=== PATIENT | male | born 1985 | race Caucasian/White ===

== ENCOUNTER 2017-05-15 13:45 | Emergency (ER) | payer OTHER ==
[~2017-05-15] VITALS: Ht 182.9 cm; Wt 94.0 kg
[2017-05-15 13:47] VITALS: BP 134/76; PULSE 108; RESP 16; TEMP 99.5; O2SAT 96
[2017-05-15] MEDS ORDERED: SODIUM CHLOR 0.9% 1000 ML INJ 1,000 ML IV SCH (14:11)
[2017-05-15] MEDS ORDERED: RESP: ALBUTEROL 2.5 MG/3 ML NEB (SCH) INH ONE (14:15)
[2017-05-15] MEDS ORDERED: methylPREDNISolone SOD SUCC 125 MG/2 ML VIAL IV PUSH ONE (14:15)
[2017-05-15] MEDS ORDERED: ONDANSETRON HCL 4 MG/2 ML VIAL IVP ONE (14:15)
[2017-05-15] MEDS ORDERED: KETOROLAC TROMETHAMINE 30 MG/ML (IVP) VIAL IVP ONE (14:15)
[2017-05-15] MEDS ORDERED: SODIUM CHLORIDE 0.9% FLUSH 10 ML FLUSH IV FLUSH PRN (14:15)
--- NOTE | 2017-05-15 14:25 | PD ---
HPI Chief Complaint: Cold / Flu Symptoms Time Seen by Provider: 14:08 Travel History International Travel<30 days: No Contact w/Intl Traveler<30days: No Traveled to known affect area: No History of Present Illness HPI 42-year-old male presents to emergency Department with complaint of fever, nasal congestion, cough, body aches, vomiting since Saturday. MAXIMUM TEMPERATURE of 103.0. Reports chest tightness. Denies chest pain, shortness of breath, wheezing. Denies ear pain. Reports throat pain. Denies abdominal pain. Reports decreased appetite and fluid intake. Has been drinking water and Gatorade. Denies diarrhea or change in stool. Symptoms are moderate in severity. Son is sick with similar symptoms and is currently being seen in the ER also. No known relieving or aggravating factors. No known allergies. Denies significant past medical history. Has no other medical complaints. No other modifying factors or associated signs and symptoms. PFSH Past Medical History Anxiety: Yes Tetanus Vaccination: Unknown Influenza Vaccination: No Past Surgical History Surgical History: No Previous Surgery Social History Alcohol Use: No Tobacco Use: No Substance Use: No Allergies-Medications (Allergen,Severity, Reaction): Coded Allergies: No Known Allergies (Unverified , 05/15/17) Reported Meds & Prescriptions Reported Meds & Active Scripts Active Ibuprofen 800 Mg Tab 800 Mg PO Q6HR PRN Zofran Odt (Ondansetron Odt) 4 Mg Tab 4 Mg SL Q8HR PRN Deltasone (Prednisone) 20 Mg Tab 20 Mg PO BID 5 Days Ventolin Hfa 18 GM Inh (Albuterol Sulfate) 90 Mcg/Act Aer 2 Puff INH Q4-6H PRN Review of Systems Except as stated in HPI: all other systems reviewed are Neg Physical Exam Narrative GENERAL: Well-nourished, well-developed male patient, in no acute distress; grade fever 99.5; appears like he does not feel well; nontoxic appearing SKIN: Pale. Warm and dry. HEAD: Atraumatic. Normocephalic. EYES: Pupils equal and round. No scleral icterus. No injection or drainage. ENT: Mucosa pink and moist. No erythema or exudates. No uvular edema. No uvular , palatal, or tonsillar deviation. Airway patent. Nares without nasal blood, purulent drainage or septal hematoma. EARS: Bilateral pinnae and external canals appear within normal limits. Bilateral tympanic membranes without erythema, dullness or perforation. NECK: Trachea midline. No lymphadenopathy. CARDIOVASCULAR: Regular rate and rhythm. No murmur appreciated. RESPIRATORY: No accessory muscle use. Lungs with Wheezing throughout to auscultation. Breath sounds equal bilaterally. No retractions or tachypnea. No Audible wheezing noted. GASTROINTESTINAL: Abdomen soft, non-tender, nondistended. Hepatic and splenic margins not palpable. Bowel sounds are active 4 quadrants. MUSCULOSKELETAL: No obvious deformities. No clubbing. No cyanosis. No edema. NEUROLOGICAL: Awake and alert. Oriented 3. No obvious cranial nerve deficits. Motor grossly within normal limits. Normal speech. Moves all extremities. 5/5 strength to all extremities. PSYCHIATRIC: Appropriate mood and affect; insight and judgment normal. Data Data Last Documented VS Vital Signs Date Time Temp Pulse Resp B/P (MAP) Pulse Ox O2 Delivery O2 Flow Rate FiO2 05/15/17 13:47 99.5 108 16 134/76 (95) 96 Orders Orders Influenzae A/B Antigen (05/15/17 14:11) Iv Access Insert/Monitor (05/15/17 14:11) Ondansetron Inj (Zofran Inj) (05/15/17 14:15) Sodium Chlor 0.9% 1000 Ml Inj (Ns 1000 M (05/15/17 14:11) Sodium Chloride 0.9% Flush (Ns Flush) (05/15/17 14:15) Ketorolac Inj (Toradol Inj) (05/15/17 14:15) Group A Rapid Strep Screen (05/15/17 14:11) Chest, Single Ap (05/15/17 14:11) Methylprednisolone So Succ Inj (Solumedr (05/15/17 14:15) Albuterol Neb (Albuterol Neb) (05/15/17 14:15) Basic Metabolic Panel (Bmp) (05/15/17 14:11) Complete Blood Count With Diff (05/15/17 14:11) Strep Culture (Group A) (05/15/17 14:30) Ed Discharge Order (05/15/17 16:45) Labs Laboratory Tests Test 05/15/17 14:30 White Blood Count 7.5 TH/MM3 Red Blood Count 4.99 MIL/MM3 Hemoglobin 13.8 GM/DL Hematocrit 43.8 % Mean Corpuscular Volume 87.7 FL Mean Corpuscular Hemoglobin 27.7 PG Mean Corpuscular Hemoglobin Concent 31.6 % Red Cell Distribution Width 12.9 % Platelet Count 220 TH/MM3 Mean Platelet Volume 8.1 FL Neutrophils (%) (Auto) 79.8 % Lymphocytes (%) (Auto) 11.1 % Monocytes (%) (Auto) 8.4 % Eosinophils (%) (Auto) 0.1 % Basophils (%) (Auto) 0.6 % Neutrophils # (Auto) 6.1 TH/MM3 Lymphocytes # (Auto) 0.8 TH/MM3 Monocytes # (Auto) 0.6 TH/MM3 Eosinophils # (Auto) 0.0 TH/MM3 Basophils # (Auto) 0.0 TH/MM3 CBC Comment DIFF FINAL Differential Comment Blood Urea Nitrogen 17 MG/DL Creatinine 1.20 MG/DL Random Glucose 112 MG/DL Calcium Level 8.8 MG/DL Sodium Level 136 MEQ/L Potassium Level 4.0 MEQ/L Chloride Level 101 MEQ/L Carbon Dioxide Level 25.7 MEQ/L Anion Gap 9 MEQ/L Estimat Glomerular Filtration Rate 69 ML/MIN MDM Medical Decision Making Medical Screen Exam Complete: Yes Emergency Medical Condition: Yes Medical Record Reviewed: Yes Differential Diagnosis Influenza, pneumonia, bronchitis Narrative Course 32-year-old male with cold/flu symptoms. His son is also being seen in the ER for similar symptoms. He has low-grade fever of 99.5 in the ER. He appears like he does not feel well and is pale. Reports MAXIMUM TEMPERATURE 103.0 at home. He has wheezing throughout on auscultation of the lungs. Reports chest tightness. Denies shortness of breath. He is in no acute distress. CBC, BMP, influenza, rapid strep, chest x-ray, IV, normal saline bolus, Zofran, Toradol ordered. 1522: Influenza A+. Rapid strep negative. 1525: Chest x-ray with no acute disease. CBC and BMP unremarkable. 1645: On reexamination Patient reports feeling better. Lungs are clear and equal throughout. I discussed viral illness and symptom management. Patient feels comfortable going home and would like to be discharged home. I feel comfortable with the patient going home. Albuterol inhaler, Deltasone, ibuprofen, Zofran prescribed for home. Diagnosis Primary Impression: Influenza A Additional Impression: Acute bronchitis Qualified Codes: J20.9 - Acute bronchitis, unspecified Referrals: [facility] Primary Care Physician Patient Instructions: Acute Bronchitis (ED), General Instructions, Influenza ( ED) Departure Forms: Tests/Procedures, Work Release Special Instructions: No work until fever free for 24 hours Additional Instructions: Ibuprofen or Tylenol as directed and as needed to reduce fever; may alternate ibuprofen and Tylenol as needed every 3 hours to minimize fever Oral steroids as prescribed Albuterol inhaler as directed and as needed for shortness of breath/wheezing [id number] cold/flu medications as directed and as needed for symptom management Get plenty of sleep/rest Drink plenty of fluids to prevent dehydration; such as Gatorade, Powerade, Pedialyte [place] diet to encourage nutrition such as crackers, fruit, applesauce, toast, soup etc. Use an air humidifier/turn off ceiling fans Follow-up with your primary care provider within 1 day Return immediately to the emergency department with worsening of symptoms Med/Other Pt SpecificInfo: Prescription(s) given Scripts Ibuprofen (Ibuprofen) 800 Mg Tab 800 MG PO Q6HR Y for PAIN, #30 TAB 0 Refills Prov: Tessy King 05/15/17 Ondansetron Odt (Zofran Odt) 4 Mg Tab 4 MG SL Q8HR Y for Nausea/Vomiting, #6 TAB 0 Refills Prov: Tessy King 05/15/17 Prednisone (Deltasone) 20 Mg Tab 20 MG PO BID for 5 Days, #10 TAB 0 Refills Prov: Tessy King 05/15/17 Albuterol 18 GM Inh (Ventolin Hfa 18 GM Inh) 90 Mcg/Act Aer 2 PUFF INH Q4-6H Y for SOB/WHEEZING, #1 INHALER 0 Refills Prov: Tessy King 05/15/17 Disposition: 01 DISCHARGE HOME Condition: Stable Tessy King May 15, 2017 14:25
[2017-05-15 14:38] LABS: AUTOMATED NEUTROPHIL # 6.1 TH/MM3 (1.8-7.7); BASOPHIL % 0.6 % (0.0-2.0); EOSINOPHIL % 0.1 % (0.0-4.0); HEMATOCRIT 43.8 % (39.0-51.0); HEMOGLOBIN 13.8 GM/DL (13.0-17.0); LYMPH % 11.1 % (9.0-44.0); LYMPHOCYTE # 0.8 TH/MM3 (1.0-4.8); MEAN CELL VOLUME 87.7 FL (80.0-100.0); MEAN CORPUSCULAR HEMOGLOBIN 27.7 PG (27.0-34.0); MEAN CORPUSCULAR HGB CONC 31.6 % (32.0-36.0); MEAN PLATELET VOLUME 8.1 FL (7.0-11.0); MONO % 8.4 % (0.0-8.0); MONOCYTE # 0.6 TH/MM3 (0-0.9); NEUT % 79.8 % (16.0-70.0); PLATELET COUNT 220 TH/MM3 (150-450); RED BLOOD COUNT 4.99 MIL/MM3 (4.50-5.90); RED CELL DISTRIBUTION WIDTH 12.9 % (11.6-17.2); WHITE BLOOD COUNT 7.5 TH/MM3 (4.0-11.0)
[2017-05-15 14:49] LABS: BICARBONATE 25.7 MEQ/L (21.0-32.0); CALCIUM 8.8 MG/DL (8.5-10.1)
[2017-05-15 14:52] LABS: CREATININE 1.2 MG/DL (0.60-1.30)
--- NOTE | 2017-05-15 15:23 | RADRPT ---
EXAM DATE/TIME: 05/15/2017 14:46 [place] COMPARISON: No previous studies available for comparison. INDICATIONS : Wheezing. Fever. Vomiting. Cough. MEDICAL HISTORY : None. SURGICAL HISTORY : None. ENCOUNTER: Initial ACUITY: 4 - 6 days PAIN SCORE: 0/10 LOCATION: Bilateral chest FINDINGS: A single view of the chest demonstrates the lungs to be symmetrically aerated without evidence of mas s, infiltrate or effusion. The cardiomediastinal contours are unremarkable. Osseous structures are intact. CONCLUSION: No acute disease. Christofer Marroquin Jr., MD on May 15, 2017 at 15:20 Board Certified Radiologist. This report was verified electronically.
[2017-05-15] MEDS ORDERED: IBUP1TAB7 PO (15:28)
[2017-05-15] MEDS ORDERED: PRED-503 PO (15:28)
[2017-05-15] MEDS ORDERED: VENTAER INH (15:28)
[2017-05-15] MEDS ORDERED: ZOFR4TAB3 SL (15:28)
[2017-05-15 17:12] VITALS: BP 120/60; TEMP 99.1
== END 2017-05-15 17:18 | disposition home or self-care (01) ==
LOC: PHEFT 13:45
DX: J10.1 Influenza due to other identified influenza virus with other respiratory manifestations (principal); J20.9 Acute bronchitis, unspecified
CPT/HCPCS: 71010; 80048; 85025; 87081; 87804; 87880; 94664; 96361; 96374; 96375; 99284; J1885; J2405; J2930; J7030; J7613